=== PATIENT | female | born 1965 | race Caucasian/White ===

== ENCOUNTER → 2020-07-09 | Day surgery (SDC) | payer OTHER ==
--- NOTE | 2020-07-09 08:46 | MMO ---
EXAM: MAMMO Brst Bx Stereo PROVIDED CLINICAL HISTORY: Microcalcifications 6:00 position right breast. Biopsy was recommended. COMPARISON: Bilateral mammograms obtained on 06/20/2020 in diagnostic mammograms on 06/28/2020 TECHNIQUE: The procedure including the risks and complications were explained to the patient, and informed conse nt was obtained. Patient was placed on the stereotactic guided breast biopsy table in supine position. Microcalcifications right breast were localized utilizing stereotactic guidance. The area w as prepped in usual fashion. Skin and subcutaneous tissues were infiltrated with buffered 1% lidocaine for local anesthesia. Small skin incision was made. A 10-gauge stereotactic guided biopsy needle was advanced followed by imaging. The needle was then ad vanced, and imaging was again performed. A total of 6 core biopsy specimens were obtained with a 10-gauge stereotactic guided biopsy needle. Specimen mammogram was performed after biopsy, but no norberto cifications were visualized in the specimen. However, the microcalcifications may potentially represent milk of calcium which would not be seen on specimen mammogram. A biopsy marker clip was ted chito at site of biopsy. Dry sterile dressing was placed at biopsy site after hemostasis was achieved with direct pressure. Th e patient tolerated the procedure well and without immediate complication. Patient was transported to mammography to obtained post biopsy mammogram. IMPRESSION: 1. Microcalcifications 6:00 position right breast. Biopsy was performed with postbiopsy mammograms kang ggesting a decrease in microcalcifications, but no microcalcifications were seen on specimen mammogram. Calcifications could potentially be secondary to milk of calcium. Pathology is currently p ending.
--- NOTE | 2020-07-09 08:48 | MMO ---
EXAM: MAMMO Surgial Specimen PROVIDED CLINICAL HISTORY: Microcalcifications 6:00 position right breast COMPARISON: Mammograms on 06/20/2020 FINDINGS/IMPRESSION: Specimen mammogram was performed after biopsy right breast microcalcifications. No calcifications are seen within the provided specimen. However, calcifications within the right breast could potentially represent milk of calcium which would not be seen on specimen mammogram. Pathology is cur rently pending.
--- NOTE | 2020-07-09 08:54 | MMO ---
EXAM: MAMMO Diag Post Proc Ltd Rt PROVIDED CLINICAL HISTORY: Post stereotactic guided breast biopsy of right breast microcalcifications . Biopsy marker clip was placed. COMPARISON: Mammograms on 06/20/2020 and 06/28/2020 FINDINGS: Biopsy marker clip is now seen in the lower and slightly inner right breast at site of microcalcifica tions. There is increased density and gas density in this region related to recent biopsy. There does appear to be a mild decrease in microcalcifications within the right breast when compared to rl or mammograms. However, no microcalcifications were seen in the specimen mammogram. Microcalcifications could potentially represent milk of calcium which would not be seen on specimen m ammogram. IMPRESSION: Post biopsy mammogram right breast demonstrating biopsy marker clip adjacent to microcalcifications i n the lower right breast. Pathology results are pending.
== END ==
LOC: MAMMO 06:49
PROVIDERS: ATTEND Nurse Practitioner
PROC: 0H9T3ZX Drainage of Right Breast, Percutaneous Approach, Diagnostic (ICD-10-PCS; principal; 2020-07-09)
DX: N60.21 Fibroadenosis of right breast (principal)
CPT/HCPCS: 19081; 76098; 88305